=== PATIENT | female | born 1965 | race Two or more races ===

== ENCOUNTER 2017-08-22 15:02 | Emergency (ER) | payer OTHER ==
[~2017-08-22] VITALS: Ht 167.6 cm; Wt 69.8 kg
[2017-08-22 15:40] VITALS: BP 128/79; Ht 167.6 cm; Wt 69.8 kg
== END 2017-08-22 17:36 | disposition home or self-care (01) ==
LOC: ED 15:02
DX: J06.9 Acute upper respiratory infection, unspecified (principal); J01.90 Acute sinusitis, unspecified; J02.9 Acute pharyngitis, unspecified

== ENCOUNTER 2018-09-15 19:44 | Emergency (ER) | payer OTHER ==
[2018-09-15 20:08] VITALS: Ht 167.6 cm
[2018-09-15 21:31] VITALS: BP 121/69
== END 2018-09-15 21:31 | disposition home or self-care (01) ==
LOC: ED 19:44
DX: J32.9 Chronic sinusitis, unspecified (principal); J11.1 Influenza due to unidentified influenza virus with other respiratory manifestations; I10 Essential (primary) hypertension; Z98.890 Other specified postprocedural states

== ENCOUNTER 2019-01-04 22:56 | Emergency (ER) | payer OTHER ==
[~2019-01-04] VITALS: Ht 167.6 cm; Wt 70.3 kg
[2019-01-04 23:06] VITALS: Ht 167.6 cm; Wt 70.3 kg
[2019-01-05 01:18] VITALS: BP 109/68
== END 2019-01-05 01:18 | disposition home or self-care (01) ==
LOC: ED 22:56
DX: L23.9 Allergic contact dermatitis, unspecified cause (principal); I10 Essential (primary) hypertension; Z98.890 Other specified postprocedural states
CPT/HCPCS: J7512

== ENCOUNTER 2019-07-30 14:58 | Emergency (ER) | payer OTHER ==
[~2019-07-30] VITALS: Ht 167.6 cm; Wt 73.1 kg
[2019-07-30 15:30] VITALS: BP 117/77; Ht 167.6 cm; Wt 73.1 kg
== END 2019-07-30 19:45 | disposition home or self-care (01) ==
LOC: ED 14:58
DX: J06.9 Acute upper respiratory infection, unspecified (principal); R51 Headache; I10 Essential (primary) hypertension

== ENCOUNTER 2019-11-17 08:11 | Emergency (ER) | payer OTHER ==
[~2019-11-17] VITALS: Ht 167.6 cm; Wt 73.5 kg
[2019-11-17 08:15] VITALS: Ht 167.6 cm; Wt 73.5 kg
[2019-11-17 09:15] VITALS: BP 142/91
== END 2019-11-17 09:15 | disposition home or self-care (01) ==
LOC: ED 08:11
DX: N39.0 Urinary tract infection, site not specified (principal); I10 Essential (primary) hypertension; E03.9 Hypothyroidism, unspecified; Z98.890 Other specified postprocedural states
CPT/HCPCS: J1885